=== PATIENT | female | born 1995 | race Two or more races ===

== ENCOUNTER 2019-05-19 10:38 | Outpatient (CLI) | payer OTHER | END 2019-05-22 15:17 | disposition home or self-care (01) | LOC: SONOGRAMA 10:38 | DX: F41.8 Other specified anxiety disorders (principal); R51 Headache; H53.8 Other visual disturbances; Z11.3 Encounter for screening for infections with a predominantly sexual mode of transmission; R10.84 Generalized abdominal pain; R22.1 Localized swelling, mass and lump, neck; Z71.89 Other specified counseling; Z13.220 Encounter for screening for lipoid disorders ==

== ENCOUNTER 2019-05-19 11:47 | Outpatient (CLI) | payer OTHER | END 2019-05-19 12:01 | disposition home or self-care (01) | LOC: LAB 11:47 | DX: F41.8 Other specified anxiety disorders (principal); R51 Headache; H53.8 Other visual disturbances; Z71.89 Other specified counseling; Z13.88 Encounter for screening for disorder due to exposure to contaminants; Z11.3 Encounter for screening for infections with a predominantly sexual mode of transmission; Z13.220 Encounter for screening for lipoid disorders ==

== ENCOUNTER 2020-09-13 21:35 | Emergency (ER) | payer OTHER ==
[~2020-09-13] VITALS: Ht 160 cm; Wt 80.7 kg
[2020-09-14] MEDS ORDERED: ACETAMINOPHEN650 M2 PO (03:52)
== END 2020-09-14 04:16 | disposition home or self-care (01) ==
LOC: ER 21:35
DX: R10.11 Right upper quadrant pain (principal); K80.20 Calculus of gallbladder without cholecystitis without obstruction

== ENCOUNTER → 2020-10-08 08:00 | Outpatient (CLI) | payer OTHER ==
[~2020-10-08 08:00] MED LIST: ACETAMINOPHEN650 M2 PO
== END | disposition home or self-care (01) ==
LOC: LAB 08:00 → ADM 09:15 → EDSTATUS 10-15 09:15 → CIR.AMB 10-15 09:15
PROVIDERS: ATTEND Specialist
DX: K80.10 Calculus of gallbladder with chronic cholecystitis without obstruction (principal); D68.8 Other specified coagulation defects; R53.83 Other fatigue; I88.0 Nonspecific mesenteric lymphadenitis; M05.8A Other rheumatoid arthritis with rheumatoid factor of other specified site; M32.8 Other forms of systemic lupus erythematosus; B27.00 Gammaherpesviral mononucleosis without complication; Z20.828 Contact with and (suspected) exposure to other viral communicable diseases

== ENCOUNTER 2020-10-12 01:26 | Inpatient (IN) | payer OTHER ==
[~2020-10-12] VITALS: Ht 160 cm; Wt 78.0 kg
== END 2020-10-16 08:55 | disposition home or self-care (01) | DRG 419 ==
LOC: ER 01:26 → SURH 09:46
PROVIDERS: ADMIT Specialist; ATTEND Specialist
PROC: BW40ZZZ Ultrasonography of Abdomen (ICD-10-PCS; 2020-10-12)
PROC: BF14YZZ Fluoroscopy of Gallbladder, Bile Ducts and Pancreatic Ducts using Other Contrast (ICD-10-PCS; 2020-10-13)
PROC: 0FJD8ZZ Inspection of Pancreatic Duct, Via Natural or Artificial Opening Endoscopic (ICD-10-PCS; 2020-10-13)
PROC: 0FT44ZZ Resection of Gallbladder, Percutaneous Endoscopic Approach (ICD-10-PCS; principal; 2020-10-15 07:00)
DX: K80.10 Calculus of gallbladder with chronic cholecystitis without obstruction (principal); E86.0 Dehydration; Z20.822 Contact with and (suspected) exposure to COVID-19

== ENCOUNTER 2021-03-28 11:41 | Emergency (ER) | payer OTHER ==
[~2021-03-28] VITALS: Ht 160 cm; Wt 86.2 kg
[2021-03-28] MEDS ORDERED: MULTIPLE VITAM1 EAC2 PO (12:26)
[2021-03-28] MEDS ORDERED: ZITHROMAX500 MG PO (15:03)
== END 2021-03-28 15:13 | disposition home or self-care (01) ==
LOC: ER 11:41
DX: R53.81 Other malaise (principal); B96.0 Mycoplasma pneumoniae [M. pneumoniae] as the cause of diseases classified elsewhere; Z11.52 Encounter for screening for COVID-19

== ENCOUNTER 2021-05-25 23:24 | Emergency (ER) | payer OTHER ==
[~2021-05-25] VITALS: Ht 160 cm; Wt 88.5 kg
[~2021-05-25 23:24] MED LIST changes: +MULTIPLE VITAM1 EAC2 PO; +ZITHROMAX500 MG PO
[2021-05-26] MEDS ORDERED: CEPHALEXIN500 MG PO (00:31)
[2021-05-26] MEDS ORDERED: KETO10TA2 PO (00:31)
== END 2021-05-26 00:38 | disposition home or self-care (01) ==
LOC: ER 23:24
DX: L08.9 Local infection of the skin and subcutaneous tissue, unspecified (principal)

== ENCOUNTER 2021-06-19 21:24 | Emergency (ER) | payer OTHER ==
[~2021-06-19] VITALS: Ht 160 cm; Wt 89.4 kg
[~2021-06-19 21:24] MED LIST changes: +CEPHALEXIN500 MG PO; +KETO10TA2 PO
== END 2021-06-19 23:26 | disposition home or self-care (01) ==
LOC: ER 21:24
DX: R51.9 Headache, unspecified (principal)

== ENCOUNTER 2021-08-19 10:51 | Emergency (ER) | payer OTHER ==
[~2021-08-19] VITALS: Ht 160 cm; Wt 90.7 kg
[2021-08-19] MEDS ORDERED: PEPCID AC20 MG PO (14:47)
[2021-08-19] MEDS ORDERED: BUTALB-ASPIRIN1 EACH PO (14:47)
== END 2021-08-19 15:28 | disposition home or self-care (01) ==
LOC: ER 10:51
DX: G43.909 Migraine, unspecified, not intractable, without status migrainosus (principal)

== ENCOUNTER 2021-08-25 23:13 | Emergency (ER) | payer OTHER ==
[~2021-08-25] VITALS: Ht 160 cm; Wt 95.3 kg
[~2021-08-25 23:13] MED LIST changes: +BUTALB-ASPIRIN1 EACH PO; +PEPCID AC20 MG PO
== END 2021-08-26 04:04 | disposition home or self-care (01) ==
LOC: ER 23:13
DX: R11.2 Nausea with vomiting, unspecified (principal)

== ENCOUNTER 2022-02-20 21:48 | Emergency (ER) | payer OTHER ==
[~2022-02-20] VITALS: Ht 160 cm; Wt 90.7 kg
== END 2022-02-21 00:15 | disposition home or self-care (01) ==
LOC: ER 21:48
DX: S61.215A Laceration without foreign body of left ring finger without damage to nail, initial encounter (principal); W45.8XXA Other foreign body or object entering through skin, initial encounter; Y93.89 Activity, other specified; Y92.9 Unspecified place or not applicable; Y99.9 Unspecified external cause status

== ENCOUNTER 2023-09-27 15:15 | Emergency (ER) | payer OTHER ==
[~2023-09-27] VITALS: Ht 160 cm; Wt 108.0 kg
[2023-09-27 17:31] LABS: HEMATOCRIT 35.8 % (36.0-45.00); HEMOGLOBIN 11.5 g/dL (12.0-15.00); MEAN CORPUSCULAR HEMOGLOBIN 21.7 pg (27.00-32.0); PLATELET COUNT 338 K/uL (150-450); RED BLOOD COUNT 5.27 M/uL (4.00-6.00); RED CELL DISTRIBUTION WIDTH 16.6 % (11.5-14.5)
[2023-09-27 17:34] LABS: MEAN CELL VOLUME 67.9 fL (80.00-100.00)
[2023-09-27 17:49] LABS: CREATININE SERUM 0.84 mg/dL (0.55-1.02); GFR 81.33; POTASSIUM 3.78 mEq/L (3.5-5.1)
[2023-09-27] MEDS ORDERED: ADVIL DUAL ACT1 EACH PO (19:06)
[2023-09-27] MEDS ORDERED: NORFLEX100MG PO (19:06)
[2023-09-27] MEDS ORDERED: ORPHENADRINE CITRATE 30 MG/ML AMPUL IM ONE (19:15)
[2023-09-27] MEDS ORDERED: KETOROLAC TROMETHAMINE 60 MG VIAL IM ONE (19:15)
== END 2023-09-27 19:23 | disposition home or self-care (01) ==
LOC: ER 15:16
PROVIDERS: Nurse Practitioner Family
DX: M54.2 Cervicalgia (principal)

== ENCOUNTER 2024-11-25 01:13 | Emergency (ER) | payer OTHER ==
[~2024-11-25] VITALS: Ht 160 cm; Wt 104.3 kg
[~2024-11-25 01:13] MED LIST changes: +ADVIL DUAL ACT1 EACH PO; +NORFLEX100MG PO
[2024-11-25] MEDS ORDERED: ORPHENADRINE CITRATE 30 MG/ML AMPUL ONE (06:17)
[2024-11-25] MEDS ORDERED: KETOROLAC TROMETHAMINE 60 MG VIAL IM ONE (06:17)
[2024-11-25] MEDS ORDERED: ORPHENADRINE CITRATE 30 MG/ML AMPUL IM STA (06:22)
[2024-11-25] MEDS ORDERED: KETOROLAC TROMETHAMINE 60 MG VIAL IM STA (06:22)
== END 2024-11-25 06:26 | disposition home or self-care (01) ==
LOC: ER 01:13
DX: M54.50 Low back pain, unspecified (principal)

== ENCOUNTER 2025-03-07 03:03 | Emergency (ER) | payer OTHER ==
[~2025-03-07] VITALS: Ht 160 cm; Wt 99.8 kg
[2025-03-07 03:29] VITALS: BP 137/90; O2SAT 100
[2025-03-07 06:23] LABS: URINE APPEARANCE Clear; URINE BILIRRUBIN Negative (NEGATIVE); URINE BLOOD Negative; URINE COLOR Yellow; URINE GLUCOSE Negative (NEGATIVE); URINE KETONE Negative (NEGATIVE); URINE LEUKOCYTE Small; URINE NITRATE Negative; URINE PROTEIN Negative (NEGATIVE); URINE UROBILINOGEN 0.2 E.U./dl
[2025-03-07 06:28] LABS: URINE BACTERIA 27.5 uL (0.0-1933); URINE EPITHELIAL CELLS 6.1 uL (0.0-38.8); URINE WBC 5.3 uL (0.0-23.2)
[2025-03-07 06:33] LABS: URINE CAST 0.43 uL (0.0-1.40); URINE RBC 1.6 uL (0.0-20.8)
[2025-03-07] MEDS ORDERED: FLUCONAZOLE150 MG PO (07:23)
[2025-03-07] MEDS ORDERED: MONISTAT 315 GM VAG (07:23)
== END 2025-03-07 07:45 ==
LOC: ER 03:03
PROVIDERS: General Practice
DX: N76.0 Acute vaginitis (principal)

== ENCOUNTER 2025-03-10 07:59 | Emergency (ER) | payer OTHER ==
[~2025-03-10] VITALS: Ht 160 cm; Wt 99.8 kg
[~2025-03-10 07:59] MED LIST changes: +FLUCONAZOLE150 MG PO; +MONISTAT 315 GM VAG
[2025-03-10] MEDS ORDERED: 0.9 % SODIUM CHLORIDE 1,000 ML IV SCH (09:15)
[2025-03-10] MEDS ORDERED: ONDANSETRON HCL 2 MG/ML VIAL IV ONE (09:15)
[2025-03-10] MEDS ORDERED: METRONIDAZOLE/SODIUM CHLORIDE 500 MG/100 ML PIGGYBACK IV ONE (09:15)
[2025-03-10 09:46] LABS: BASO % 0.3 % (0.1-1.2); EOS # 0.01 (0.04-0.54); EOS % 0.1 % (0.7-7.0); LYMPH # 0.95 (1.18-3.74); LYMPH % 14.2 % (19.3-53.1); MEAN PLATELET VOLUME 10.60 fl (9.4-12.4); MONO # 1.01 (0.24-0.82); NEUT # 4.70 (1.56-6.13); NEUT % 70.2 % (34.0-71.1); RED CELL DISTRIBUTION WIDTH 14.2 % (11.6-14.4)
[2025-03-10 09:52] LABS: MONO % 15.1 % (4.7-12.5)
[2025-03-10 10:31] LABS: BUN CREA RATIO 16.0 (7.0-25.0); CREATININE SERUM 0.64 mg/dL (0.55-1.02); GFR 110.49; GLUCOSE FASTING 86.0 mg/dL (65-100); OSMOLALITY SERUM 276.0 MOSM/KG (275-295)
[2025-03-10] MEDS ORDERED: LOPERAMIDE HCL 2 MG CAPSULE PO ONE (17:00)
== END 2025-03-10 17:16 | disposition home or self-care (01) ==
LOC: ER 07:59
PROVIDERS: Emergency Medicine
DX: K52.9 Noninfective gastroenteritis and colitis, unspecified (principal); R53.81 Other malaise

== ENCOUNTER 2025-03-16 01:45 | Emergency (ER) | payer OTHER ==
[~2025-03-16] VITALS: Ht 160 cm; Wt 99.8 kg
[2025-03-16] MEDS ORDERED: KETOROLAC TROMETHAMINE 30 MG VIAL IV STA (02:23)
[2025-03-16] MEDS ORDERED: MORPHINE SULFATE 4 MG/ML VIAL IV STA (02:24)
[2025-03-16] MEDS ORDERED: KETOROLAC TROMETHAMINE 30 MG VIAL ONE (02:51)
[2025-03-16 03:18] LABS: URINE APPEARANCE Cloudy; URINE BILIRRUBIN Negative (NEGATIVE); URINE BLOOD Large; URINE COLOR Yellow; URINE GLUCOSE Negative (NEGATIVE); URINE KETONE Negative (NEGATIVE); URINE LEUKOCYTE Moderate; URINE NITRATE Negative; URINE PROTEIN 30 (NEGATIVE); URINE UROBILINOGEN 0.2 E.U./dl
[2025-03-16 03:20] LABS: BASO % 0.2 % (0.1-1.2); EOS # 0.08 (0.04-0.54); EOS % 0.7 % (0.7-7.0); LYMPH # 1.71 (1.18-3.74); LYMPH % 15.1 % (19.3-53.1); MEAN PLATELET VOLUME 10.70 fl (9.4-12.4); MONO # 0.86 (0.24-0.82); MONO % 7.6 % (4.7-12.5); NEUT # 8.62 (1.56-6.13); NEUT % 76.1 % (34.0-71.1); RED CELL DISTRIBUTION WIDTH 13.8 % (11.6-14.4)
[2025-03-16 03:21] LABS: URINE BACTERIA 552.0 uL (0.0-1933); URINE EPITHELIAL CELLS 41.6 uL (0.0-38.8); URINE RBC 637.5 uL (0.0-20.8); URINE WBC 743.1 uL (0.0-23.2)
[2025-03-16 03:32] LABS: URINE CAST 0.00 uL (0.0-1.40)
[2025-03-16 03:49] LABS: BUN CREA RATIO 21.0 (7.0-25.0); CREATININE SERUM 0.57 mg/dL (0.55-1.02); GFR 126.3; GLUCOSE FASTING 117.0 mg/dL (65-100); OSMOLALITY SERUM 278.0 MOSM/KG (275-295)
[2025-03-16] MEDS ORDERED: CIPROFLOXACIN IN 5 % DEXTROSE 400 MG/200 ML PIGGYBAG IV STA (04:32)
[2025-03-16] MEDS ORDERED: CIPROFLOXACIN IN 5 % DEXTROSE 400 MG/200 ML PIGGYBAG IV ONE (04:34)
[2025-03-16] MEDS ORDERED: FAMOTIDINE/PF 20 MG/2 ML VIAL ONE (05:19)
[2025-03-16] MEDS ORDERED: FAMOTIDINE/PF 20 MG/2 ML VIAL IV PUSH ONE (05:30)
[2025-03-16] MEDS ORDERED: METOCLOPRAMIDE HCL 5 MG/ML VIAL IM STA (05:51)
[2025-03-16] MEDS ORDERED: PROMETHAZINE HCL 50 MG/ML AMPUL IM ONE (05:51)
[2025-03-16] MEDS ORDERED: METOCLOPRAMIDE HCL 5 MG/ML VIAL ONE (05:52)
[2025-03-16] MEDS ORDERED: PROMETHAZINE HCL 50 MG/ML AMPUL IM STA (05:52)
== END 2025-03-16 08:25 | disposition home or self-care (01) ==
LOC: ER 01:45
DX: N39.0 Urinary tract infection, site not specified (principal); R10.9 Unspecified abdominal pain